=== PATIENT | female | born 1945 | race Caucasian/White ===

== ENCOUNTER → 2019-12-01 | Outpatient (CLI) | payer MEDICARE, BC ==
[~2019-12-01] MED LIST: CEPHALEXIN500 M1 PO; FOSAMAX PO; LORTAB 5/500 501 TAB PO; MULTIPLE VITAMI1 CAP PO
== END ==
LOC: MC.RAD 10:26
DX: Z12.31 Encounter for screening mammogram for malignant neoplasm of breast (principal)